=== PATIENT | female | born 1985 | race Caucasian/White ===

== ENCOUNTER 2017-10-02 22:40 | Inpatient (IN) | payer OTHER ==
[2017-10-02] MEDS ORDERED: LACTATED RINGERS 1,000 ML ONE (23:14)
[2017-10-02 23:37] LABS: Hematocrit 35.2 % (30.3-42.9); Hemoglobin 11.9 gm/dl (10.1-14.3); Mean Corpuscular HGB Conc 34 % (30-34); Mean Corpuscular Hemoglobin 29 pg (28-32); Mean Corpuscular Volume 84 fl (79-97); Platelet Count 205 K/mm3 (140-440); Red Blood Count 4.17 M/mm3 (3.65-5.03); Red Cell Distribution Width 13.2 % (13.2-15.2)
[2017-10-02] MEDS ORDERED: SUBLIMAZE IV ONE (23:40)
[2017-10-02] MEDS ORDERED: PITOCin/NS 30 UNIT/500ML 30 UNITS/500 ML BAG IV SCH (23:45)
[2017-10-02] MEDS ORDERED: LACTATED RINGERS 1,000 ML IV SCH ×2 (23:45)
[2017-10-02] MEDS ORDERED: PITOCin/NS 20 UNIT/1000ML DRIP 20 UNITS/1,000 ML BAG IV SCH (23:45)
--- NOTE | 2017-10-02 23:45 | History and Physical Report ---
History of Present Illness Date of examination: 10/02/17 Date of admission: 10/02/17 22:48 Chief complaint: contractions History of present illness: Pt is a 32 year old CHASIDY 10/03/17 at 39w6d who presents with regular contractions since this morning and advanced cervical dilation of 7 cm on admission. She denies leakage of fluid or vaginal bleeding. She has had care at [facility] since 9 wks complicated by small for dates with MFM referral and adequate subsequent growth. She is GBS negative. Past History Past Medical History: no pertinent history Past Surgical History: no surgical history Family/Genetic History: diabetes, hypertension Social history: no significant social history - Obstetrical History Expected Date of Delivery: 10/03/17 Actual Gestation: 39 Week(s) 6 Day(s) : 3 Para: 1 Hx # Term Pregnancies: 1 Number of Pregnancies: 0 Spontaneous Abortions: 1 Induced : 0 Number of Living Children: 1 Medications and Allergies Allergies Allergy/AdvReac Type Severity Reaction Status Date / Time No Known Allergies Allergy Verified 11/21/13 01:35 Home Medications Medication Instructions Recorded Confirmed Last Taken Type Nitrofurantoin Roane/M-Cryst 1 tab PO BID 11/21/13 11/21/13 11/20/13 15:00 History [Macrobid CAP] one Acetaminophen/Codeine [Tylenol #3] 1 tab PO Q6H PRN #20 tab 11/22/13 Unknown Rx Docusate Sodium [Colace] 100 mg PO BID PRN #60 capsule 11/22/13 Unknown Rx Ferrous Sulfate [Feosol 325 MG tab] 325 mg PO BID #60 tablet 11/22/13 Unknown Rx Ibuprofen [Motrin] 600 mg PO Q8H PRN #60 tablet 11/22/13 Unknown Rx Active Meds: Active Medications Lactated Ringer's (Lactated Ringers) 1,000 mls @ 125 mls/hr IV DIRECT ALLAN Review of Systems All systems: negative - Vital Signs Vital signs: Vital Signs Pulse BP 73 118/69 10/02/17 22:47 10/02/17 22:47 Temp Pulse Resp BP Pulse Ox 81 118/69 100 10/02/17 23:42 10/02/17 22:47 10/02/17 23:42 - Physical Exam Breasts: Positive: deferred Cardiovascular: Regular rate Lungs: Positive: Clear to auscultation Abdomen: Positive: soft (gravid ) Uterus: Positive: enlarged (gravid ) Extremities: Positive: normal - Obstetrical FHR: category 2 Uterine Contraction Monitor Mode: External Cervical Dilatation: 8 Cervical Effacement Percentage: 100 station: -1 Uterine Contraction Frequency (min): 2 min Uterine Contraction Duration: 45 sec Uterine Contraction Pattern: Regular Uterine Tone Measurement Phase: Resting Uterine Contraction Intensity: Strong/Firm Results Result Diagrams: 10/02/17 23:18 All other labs normal. Assessment and Plan A: IUP at 39w6d Active labor GBS negative P: Admit to labor and delivery. Epidural as desired. Routine intrapartum care.
[2017-10-02] MEDS ORDERED: ZOFRAN IV PRN (23:54)
[2017-10-02] MEDS ORDERED: BRETHINE SUB-Q PRN (23:54)
[2017-10-02] MEDS ORDERED: NARCAN 0.4 MG/1 ML IV PRN (23:54)
[2017-10-02] MEDS ORDERED: MINERAL OIL PO PRN (23:54)
[2017-10-02] MEDS ORDERED: BRETHINE IVP PRN (23:54)
[2017-10-02] MEDS ORDERED: XYLOCAINE 2% INFILTRATI ONE (23:54)
[2017-10-02] MEDS ORDERED: ePHEDrine SULFATE IV PRN (23:54)
[2017-10-03] MEDS ORDERED: NARCAN 2 MG/2 ML IV PRN (00:09)
[2017-10-03] MEDS ORDERED: ePHEDrine SULFATE IV PRN (00:09)
--- NOTE | 2017-10-03 00:09 | Anesthesia Consultation ---
Anesthesia Consult and Med Hx - Airway Anesthetic Teeth Evaluation: Good ROM Head & Neck: Adequate Mental/Hyoid Distance: Adequate Mallampati Class: Class II Intubation Access Assessment: Good - Pulmonary Exam CTA: Yes - Cardiac Exam Cardiac Exam: RRR - Pre-Operative Health Status ASA Pre-Surgery Classification: ASA2 Proposed Anesthetic Plan: Epidural, Spinal - Pulmonary Hx Asthma: No COPD: No Hx Pneumonia: No - Cardiovascular System Hx Hypertension: No - Central Nervous System Hx Seizures: No Hx Psychiatric Problems: No - Endocrine Hx Renal Disease: No Hx End Stage Renal Disease: No Hx Hypothyroidism: No Hx Hyperthyroidism: No - Hematic Hx Anemia: No Hx Sickle Cell Disease: No - Other Systems Hx Alcohol Use: No
[2017-10-03] MEDS ORDERED: METHERGINE IM ONE ×2 (00:19)
--- NOTE | 2017-10-03 00:32 | Event Note ---
Date: 10/03/17 Pt now comfortable with epidural. Cat II tracing. SVE: 8/100/0. AROM- clear fluid. Continue routine intrapartum managment.
[2017-10-03] MEDS ORDERED: fentaNYL-BUPIV 2 MCG/ML-0.125% 200 MCG/100 ML BAG EPIDURAL SCH (01:00)
--- NOTE | 2017-10-03 01:57 | Procedure Note ---
OB Delivery Note - Delivery Date of Delivery: 10/03/17 Surgeon: KATHRYN MURILLO Estimated blood loss: other (400 mL) - Vaginal Delivery presentation: vertex Delivery position: OA Intrapartum events: PROM->1hr before delivery, uterine atony Delivery induction: none Delivery augmentation: rupture of membranes, pitocin Delivery monitor: external FHT, external uterine Route of delivery: Delivery placenta: spontaneous Delivery cord: 3 umbilical vessels Episiotomy: none Delivery laceration: 2nd degree Delivery repair: vicryl Anesthesia: local, epidural Delivery comments: Pt progressed to complete/complete/+1 and pushed to deliver a viable female via under epidural anesthesia over intact perineum. Head delivered in JOEY position. Shoulders and body delivered easily. placed on maternal abdomen and bulb suctioned. Cord clamped and cut. NICU called for slow to cry. Placenta delivered spontaneously (3VC, intact). Uterus noted to be atonic. Methergine 0.2 mg IM administered. Uterine fundus firm. Vagina and perineum explored. Second degree perineal laceration repaired with 2-0 Vicryl in a standard fashion. EBL 400 mL. - Infant A at 1 minute: 8 at 5 minutes: 9 Gender: Female (2965g (6lb 9oz) @ 0123 am)
[2017-10-03] MEDS ORDERED: ZOFRAN IV PRN (04:35)
[2017-10-03] MEDS ORDERED: PHENERGAN PO PRN (04:35)
[2017-10-03] MEDS ORDERED: TYLENOL PO PRN (04:35)
[2017-10-03] MEDS ORDERED: BENADRYL PO PRN (04:35)
[2017-10-03] MEDS ORDERED: NORCO 5/325 PO PRN (04:35)
[2017-10-03] MEDS ORDERED: PHENERGAN PR PRN (04:35)
[2017-10-03] MEDS ORDERED: TUCKS PAD TP PRN (04:35)
[2017-10-03] MEDS ORDERED: SODIUM CHLORIDE FLUSH SYRINGE 10 ML IV NR (04:35)
[2017-10-03] MEDS ORDERED: PITOCin/NS 20 UNIT/1000ML DRIP 20 UNITS/1,000 ML BAG IV SCH (04:35)
[2017-10-03] MEDS ORDERED: DULCOLAX PR PRN (04:35)
[2017-10-03] MEDS ORDERED: DERMOPLAST TP PRN (04:35)
[2017-10-03] MEDS ORDERED: LANSINOH TP PRN (04:35)
[2017-10-03] MEDS ORDERED: MILK OF MAGNESIA PO PRN (04:35)
[2017-10-03] MEDS: MOTRIN PO SCH ×2 (12:10→18:38)
[2017-10-03] MEDS: COLACE PO SCH ×2 (12:10→22:03)
[2017-10-03] MEDS: FEOSOL PO SCH ×2 (12:11→22:03)
[2017-10-03] MEDS: PRENATAL VITAMIN PO SCH (12:11)
[2017-10-03 17:14] LABS: Hematocrit 33.1 % (30.3-42.9); Hemoglobin 11.2 gm/dl (10.1-14.3)
[2017-10-04] MEDS: MOTRIN PO SCH ×3 (00:07→11:51)
[2017-10-04] MEDS ORDERED: BOOSTRIX IM ONE (06:00)
[2017-10-04] MEDS ORDERED: M-M-R II VACCINE SUB-Q ONE (06:00)
--- NOTE | 2017-10-04 08:22 | Progress Note ---
Assessment and Plan O: VSS Af PP H/H: 11.2/33.1 A: Stable PP Day 1 P: D/C home Subjective - Subjective Date of service: 10/04/17 Patient reports: appetite normal, voiding normally, pain well controlled, flatus , ambulating normally, other (generalized fatigue) [place]: doing well, nursing well Objective - Vital Signs Latest vital signs: Vital Signs Temp Pulse Resp BP Pulse Ox 10/04/17 05:04 18 10/04/17 01:26 98.3 F 59 L 20 109/51 96 10/03/17 13:58 97.7 F 62 18 109/52 98 10/03/17 08:24 98.5 F 66 18 98/61 98 Intake and Output 10/03/17 10/04/17 10/04/17 22:59 06:59 14:59 Intake Total 360 Balance 360 Intake: Intake, Free Water 360 Other: # Voids Void 2 - Exam Breasts: Present: Lungs: Present: Clear to auscultation, Normal air movement Abdomen: Present: normal appearance, soft. Absent: distention, tenderness Uterus: Present: normal, firm, fundal height below umbilicus. Absent: bogginess , tenderness Extremities: Present: normal
--- NOTE | 2017-10-04 08:25 | Discharge Summary ---
Providers - Providers Date of Admission: 10/02/17 22:48 Date of discharge: 10/04/17 Attending physician: JORDAN RUSSELL 10/03/17 04:35 Consult to Urology Surgeon [CONS] Routine Reason For Exam: assistance with , SNS Primary care physician: JORDAN RUSSELL Hospitalization Reason for admission: active labor, IUP at term Delivery: Episiotomy: none Laceration: 2nd degree Other procedures: none Discharge diagnosis: IUP at term delivered baby: female Condition at discharge: Good Disposition: DC-01 TO HOME OR SELFCARE Plan - Discharge Medications Prescriptions: Acetaminophen/Codeine [Tylenol /Codeine # 3 tab] 1 tab PO Q4HR PRN #30 tablet PRN Reason: Pain Ibuprofen [Motrin 600 MG tab] 600 mg PO Q6H PRN #30 tablet PRN Reason: pain - Provider Discharge Summary Activity: routine, no sex for 6 weeks, no heavy lifting 4 weeks, no strenuous exercise Diet: routine Instructions: routine Additional instructions: [] Smoking cessation referral if applicable(refer to patient education folder for contact #) [] Refer to [facility] Booklet Call your doctor immediately for: * Fever > 100.5 * Heavy vaginal bleeding ( >1 pad per hour) * Severe persistent headache * Shortness of breath * Reddened, hot, painful area to leg or breast * Drainage or odor from incision. * Keep incision clean and dry at all times and follow doctor's instructions regarding bathing/showering - Follow up plan Follow up: JORDAN RUSSELL MD [Primary Care Provider] - DESIRAE SNOWDEN CNM [Advanced Practice Nurse] - (RTO 4 weeks )
[2017-10-04] MEDS: FEOSOL PO SCH (11:52)
[2017-10-04] MEDS: PRENATAL VITAMIN PO SCH (11:52)
[2017-10-04] MEDS: COLACE PO SCH (11:52)
[2017-10-04 14:28] VITALS: BP 105/51
== END 2017-10-04 15:45 | disposition home or self-care (01) | DRG 775 ==
LOC: TRG 22:40 → LD 22:48 → OB 10-03 04:30
PROVIDERS: ADMIT Obstetrics & Gynecology; ATTEND Obstetrics & Gynecology
PROC: 10E0XZZ Delivery of Products of Conception, External Approach (ICD-10-PCS; principal; 2017-10-03)
PROC: 0KQM0ZZ Repair Perineum Muscle, Open Approach (ICD-10-PCS; 2017-10-03)
PROC: 10907ZC Drainage of Amniotic Fluid, Therapeutic from Products of Conception, Via Natural or Artificial Opening (ICD-10-PCS; 2017-10-03)
PROC: 3E0R3BZ Introduction of Anesthetic Agent into Spinal Canal, Percutaneous Approach (ICD-10-PCS; 2017-10-03)
PROC: 00HU33Z Insertion of Infusion Device into Spinal Canal, Percutaneous Approach (ICD-10-PCS; 2017-10-03)
DX: O42.02 Full-term premature rupture of membranes, onset of labor within 24 hours of rupture (principal); O62.2 Other uterine inertia; O70.1 Second degree perineal laceration during delivery; Z3A.39 39 weeks gestation of pregnancy; Z37.0 Single live birth
CPT/HCPCS: 36415; 85014; 85018; 85027; 86592; 86850; 86900; 86901; 99211; A6250; G0463; J2210; J2590; J3010; J7120